=== PATIENT | female | born 1945 | race Caucasian/White ===

== ENCOUNTER 2017-07-09 08:41 | Day surgery (SDC) | payer MEDICARE, OTHER ==
[2017-07-08 12:28] LABS: ALANINE AMINOTRANSFERASE 8 U/L (12-78); ALBUMIN 3.3 G/DL (3.4-5.0); ALBUMIN/GLOBULIN RATIO 0.9 (1.1-1.5); ALKALINE PHOSPHATASE 70 IU/L (46-116); ANION GAP 10 (8-16); ASPARTATE AMINO TRANSFERASE 13 U/L (10-37); BILIRUBIN,TOTAL 0.3 MG/DL (0.1-1.0); BLOOD UREA NITROGEN 25 MG/DL (7-18); BUN/CREATININE RATIO 18.4 (6.6-38.0); CALCIUM 8.9 MG/DL (8.5-10.1); CHLORIDE 108 MMOL/L (99-107); CHOL/HDL RATIO 1.9 (0.00-4.99); CHOLESTEROL 169 MG/DL (0-200); CREATININE 1.36 MG/DL (0.40-0.90); GLUCOSE 147 MG/DL (70-104); HDL CHOLESTEROL 89 MG/DL (35-60); LDL CHOLESTEROL 65 MG/DL (50-100); POTASSIUM 4.3 MMOL/L (3.5-5.1); SODIUM 142 MMOL/L (135-145); TOTAL CARBON DIOXIDE 24.3 MMOL/L (24-32); TRIGLYCERIDES 83 MG/DL (20-135); eGFR 38 ML/MIN
[2017-07-09] VITALS (11 sets, daily range): BP systolic 108–153; BP diastolic 44–74
[2017-07-09] MEDS ORDERED: acetylcysteine 200 MG/ml 4ml vial PO SCH (09:01)
[2017-07-09] MEDS ORDERED: sod bicarbonate 150mEq in D5W 1,150 ML IV SCH ×2 (09:05→10:00)
[2017-07-09] MEDS ORDERED: LORazepam 0.5 MG tablet PO PRN (09:05)
[2017-07-09] MEDS ORDERED: diphenhydrAMINE 25mg capsule PO PRN (09:05)
[2017-07-09] MEDS ORDERED: CAPT12.53 PO (09:58)
[2017-07-09] MEDS ORDERED: ASPI81TA52 PO (09:58)
[2017-07-09] MEDS ORDERED: METO-395 PO (09:58)
[2017-07-09] MEDS ORDERED: CLOP75TA15 PO (09:58)
[2017-07-09] MEDS ORDERED: IRON-12 PO (09:58)
[2017-07-09] MEDS ORDERED: ATOR20TA PO (09:58)
[2017-07-09] MEDS ORDERED: PIOG30TA10 PO (09:58)
[2017-07-09] MEDS ORDERED: POTA10TA10 PO (09:58)
[2017-07-09] MEDS ORDERED: GLIP5TAB13 PO (09:58)
[2017-07-09] MEDS ORDERED: DOCU-28 PO (09:58)
[2017-07-09] MEDS ORDERED: ALPR-624 PO (09:58)
[2017-07-09] MEDS ORDERED: FURO40TA4 PO (09:58)
[2017-07-09] MEDS ORDERED: VALA500T PO (09:58)
[2017-07-09] MEDS ORDERED: LIDOcaine 1%/PF (10mg/ml) 5ml vial ONE (12:32)
[2017-07-09] MEDS ORDERED: midazolam 2 mg/2 ml injection ONE (12:32)
[2017-07-09] MEDS ORDERED: heparin 1,000unit/ml 10ml vial 10 ML ONE (12:32)
[2017-07-09] MEDS ORDERED: fentaNYL/PF 50MCG/1 ML 2ML syringe ONE (12:32)
[2017-07-09] MEDS ORDERED: nitroGLYCERIN-Tridil 50MG/D5W 250 ML IV ONE (12:32)
[2017-07-09] MEDS ORDERED: iohexol 350 MG/ML 50ML vial IV ONE ×3 (12:33→13:56)
[2017-07-09] MEDS ORDERED: iohexol 350MG/ML 100ml bottle IV ONE (12:33)
[2017-07-09] MEDS ORDERED: normal saline 1000ml 1,000 ML IV SCH ×2 (14:50→15:05)
[2017-07-09] MEDS ORDERED: HYDROcodone/acetaminophen 10/325mg tab PO PRN (15:00)
[2017-07-09] MEDS ORDERED: cyclobenzaprine 10mg tablet PO PRN ×2 (15:00→15:03)
[2017-07-09] MEDS ORDERED: OXAZEpam 15mg capsule PO PRN (15:00)
[2017-07-09] MEDS ORDERED: HYDROcodone/acetaminophen 5mg/325mg tablet PO PRN (15:05)
== END 2017-07-09 18:53 | disposition home or self-care (01) ==
LOC: SSTAY O 08:41
PROVIDERS: ATTEND Internal Medicine Cardiovascular Disease
DX: I25.10 Atherosclerotic heart disease of native coronary artery without angina pectoris (principal); I10 Essential (primary) hypertension; E78.5 Hyperlipidemia, unspecified; M19.90 Unspecified osteoarthritis, unspecified site; F41.9 Anxiety disorder, unspecified; F32.9 Major depressive disorder, single episode, unspecified; E66.3 Overweight; Z90.49 Acquired absence of other specified parts of digestive tract; Z95.1 Presence of aortocoronary bypass graft
CPT/HCPCS: 36415; 80053; 80061; 82948; 93005; 93459; 99152; 99153; A6257; C1760; C1769; J1644; J2001; J2250; J3010; J3490; J7030; Q0163; Q9967; A4620